=== PATIENT | female | born 1995 | race Caucasian/White ===

== ENCOUNTER 2017-07-07 12:02 | Emergency (ER) | payer MEDICAID ==
[2017-07-07 12:24] VITALS: TEMP 98
[2017-07-07] MEDS ORDERED: Iohexol 240 (50 ml) PO ONE (13:52)
[2017-07-07] MEDS ORDERED: Sodium Chloride 0.9% 1,000 ML IV STA (13:53)
--- NOTE | 2017-07-07 13:55 | ED PDOC ---
HPI: Abdomen Time Seen by Provider: 07/07/17 12:19 Chief Complaint (Nursing): Abdominal Pain Chief Complaint (Provider): Abdominal pain History Per: Patient Additional Complaint(s): 21 yo female, no PMH, presents to ED with complaints of kar umbilical abd pain , described as cramping and sharp, non radiating. No fever or chills. Pt notes associated vomiting x6+No diarrhea Past Medical History Reviewed: Nursing Documentation, Vital Signs Vital Signs: Last Vital Signs Temp 98 F 07/07/17 19:13 Pulse 78 07/07/17 19:13 Resp 17 07/07/17 19:13 BP 120/78 07/07/17 19:13 Pulse Ox 98 07/07/17 19:13 - Medical History PMH: No Chronic Diseases - Family History Family History: States: Unknown Family Hx - Living Arrangements Living Arrangements: With Family - Social History Current smoker - smoking cessation education provided: No Alcohol: Social Drugs: Denies - Home Medications Home Medications: Ambulatory Orders Medication Instructions Recorded Phenazopyridine HCl [Pyridium] 100 mg PO TID #6 tab 04/20/17 Sulfamethoxazole/Trimethoprim 1 tab PO BID 5 Days tab 04/20/17 [Bactrim DS 800 mg-160 mg] Dicyclomine [Bentyl] 10 mg PO QID PRN #10 cap 07/07/17 Ondansetron ODT [Zofran ODT] 4 mg PO Q6 PRN #10 odt 07/07/17 - Allergies Allergies/Adverse Reactions: Allergies Allergy/AdvReac Type Severity Reaction Status Date / Time No Known Allergies Allergy Verified 08/15/14 22:58 Review of Systems ROS Statement: Except As Marked, All Systems Reviewed And Found Negative Constitutional: Negative for: Fever Gastrointestinal: Positive for: Nausea, Vomiting, Abdominal Pain. Negative for : Diarrhea Physical Exam - Reviewed Nursing Documentation Reviewed: Yes Vital Signs Reviewed: Yes - Physical Exam Appears: Positive for: Well, Non-toxic, No Acute Distress Head Exam: Positive for: ATRAUMATIC, NORMAL INSPECTION, NORMOCEPHALIC Skin: Positive for: Normal Color, Warm, DRY Eye Exam: Positive for: EOMI, Normal appearance, PERRL ENT: Positive for: Normal ENT Inspection Neck: Positive for: Normal, Painless ROM Cardiovascular/Chest: Positive for: Regular Rate, Rhythm Respiratory: Positive for: CNT, Normal Breath Sounds Gastrointestinal/Abdominal: Positive for: Bowel Sounds, Soft, Tenderness (mild kar umbilical) Back: Positive for: Normal Inspection Extremity: Positive for: Normal ROM Neurologic/Psych: Positive for: Alert, Oriented - Laboratory Results Result Diagrams: 07/07/17 14:13 07/07/17 14:00 - ECG O2 Sat by Pulse Oximetry: 100 Medical Decision Making Medical Decision Making: IV access established and treatment initiated with IVF, Zofran and Toradol Labs resulted and reviewed with Pt who demonstrated full understanding IMPRESSION: No evidence of acute appendicitis. There are short segments of of irregular wall thickening of the mid sigmoid colon as well as the distal descending/ proximal sigmoid colon which could be secondary to some combination of underdistention, peristalsis and under opacified stool however the possibility of a nonspecific inflammatory process cannot be excluded clinical correlation recommended. Mild fatty hepatic infiltration. Liver is prominent in transverse dimension extending to the left upper quadrant of the abdomen. See above discussion for additional details, findings and recommendations. On re-eval, Pt reports feeling improved. Abdomen soft, non tedner and non distended. Pt remains aferbile Disposition - Clinical Impression Clinical Impression: Abdominal pain - Patient ED Disposition Is Patient to be Admitted: No - Disposition Disposition: Routine/Home Disposition Time: 17:00 Condition: STABLE Prescriptions: Dicyclomine [Bentyl] 10 mg PO QID PRN #10 cap PRN Reason: Pain, Mild (1-3) Ondansetron ODT [Zofran ODT] 4 mg PO Q6 PRN #10 odt PRN Reason: Nausea/Vomiting Instructions: Acute Abdominal Pain (ED) Forms: [employer] (Azeri)
[2017-07-07] MEDS ORDERED: Iohexol 240 (50 ml) ONE (14:14)
[2017-07-07 14:22] LABS: BASO % 0.6 % (0.0-2.0); EOS % 0.3 % (0.0-4.0); HEMOGLOBIN 13.2 g/dL (12.0-16.0); LYMPH # 1.7 K/uL (1.0-4.3); LYMPH % 27.5 % (20.0-40.0); MEAN CORPUSCULAR HGB CONC 33.3 g/dL (33.0-37.0); MONO # 0.5 K/uL (0.0-0.8); MONO % 7.6 % (0.0-10.0); RBC 4.54 Mil/uL (3.80-5.20); RED CELL DISTRIBUTION WIDTH 13.1 % (11.5-14.5); WHITE BLOOD COUNT 6.2 K/uL (4.8-10.8)
[2017-07-07 14:41] LABS: ALB/GLOB RATIO 1.3 (1.0-2.1); ALBUMIN 4.6 g/dL (3.5-5.0); ALT/SGPT 27 U/L (9-52); AMYLASE 92 U/L (30-110); AST/SGOT 21 U/L (14-36); BLOOD UREA NITROGEN 14 mg/dl (7-17); CALCIUM 9.5 mg/dL (8.4-10.2); GFR AFRICAN-AMERICAN > 60; GFR NON-AFRICAN AMERICAN > 60; LIPASE 45 U/L (23-300)
[2017-07-07 14:54] LABS: SQUAMOUS EPITHIAL 20 /hpf (0-5); URINE AMORPHOUS SEDIMENT RARE /ul (<OCC); URINE BILIRUBIN NEGATIVE (NEGATIVE); URINE BLOOD SMALL (NEGATIVE); URINE CLARITY CLOUDY (Clear); URINE COLOR YELLOW (YELLOW); URINE GLUCOSE (UA) NEG (Normal); URINE LEUKOCYTE ESTERASE NEG Leu/uL (Negative); URINE NITRATE NEGATIVE (NEGATIVE); URINE PROTEIN 100 mg/dL (NEGATIVE); URINE UROBILINOGEN 0.2-1.0 mg/dL (0.2-1.0)
[2017-07-07] MEDS ORDERED: Iohexol 300 100 ML IJ ONE (15:54)
[2017-07-07] MEDS ORDERED: Sodium Chloride 0.9% 50 ML IV ONE (15:54)
--- NOTE | 2017-07-07 17:56 | CT ---
PROCEDURE: CT scan abdomen and pelvis dated 07/07/2017 HISTORY: Rule out appendicitis COMPARISON: No prior TECHNIQUE: Contiguous axial images of the abdomen and pelvis performed following oral and intravenous injection of approximately 95 cc Omnipaque [address] exam was performed using one or more of the following dose reduction techniques: Automated exposure control, adjustment of the mA and/or kV according to patient size, and/or use of iterative reconstruction technique. Radiation dose: Total exam DLP = 471.79 mGy-cm. FINDINGS: LOWER THORAX: There is a tiny approximately 3 mm somewhat translucent healing elliptical shaped subpleural nodular density right posterior sulcus that may represents postinflammatory sequela. Minor left basilar atelectasis on slightly more inferiorly located as well. No effusion or basilar pneumothorax. Tiny hiatal hernia. LIVER: Liver exhibits relatively measures approximately 17 cm in CC dimension. However the left lobe of the liver extends to the left upper quadrant of the abdomen. Mild diffuse fatty hepatic infiltration. No obvious hepatic mass collection or calcification. Portal and splenic veins are opacified. GALLBLADDER AND BILE DUCTS: The gallbladder is physiologically distended. No evidence of intraluminal gallbladder calculi. . PANCREAS: Unremarkable. No mass. No ductal dilatation. SPLEEN: Unremarkable. No splenomegaly. ADRENALS: No adrenal lesions KIDNEYS AND URETERS: Unremarkable. No stone or hydronephrosis. BLADDER: Urinary bladder appears appears partially distended. Minimal wall thickening may be due to incomplete distention however correlation with urinalysis recommended to exclude cystitis. REPRODUCTIVE: Unremarkable as visualized APPENDIX: Normal-appearing appendix best seen on coronal image number [id number]. No evidence of appendicitis. BOWEL: Evaluation of the bowel is somewhat limited due to incomplete opacification. Stomach is incompletely distended which may account for thick-walled appearance. Gastritis not excluded. Visualized loops of small bowel exhibit normal contour and caliber. No evidence acute mechanical small bowel obstruction. Oral contrast material has extended into the colon to the level of the rectum. There is mild irregular wall thickening of a short segment of the mid sigmoid colon which may in part be due to some combination of incomplete distention, peristalsis head non-opacified stool however the possibility of a localized inflammatory process -colitis must be at considered. Clinical correlation recommended. There is a similar focus of of wall thickening involving a short segment of the distal descending/ proximal sigmoid colon noted as well. PERITONEUM: Unremarkable. No fluid collection. No free air. Small fat containing umbilical hernia. LYMPH NODES: Unremarkable. No enlarged lymph nodes. VASCULATURE: Unremarkable. No aortic aneurysm. BONES: Osseous structures appear grossly intact. OTHER FINDINGS: None. IMPRESSION: No evidence of acute appendicitis. There are short segments of of irregular wall thickening of the mid sigmoid colon as well as the distal descending/ proximal sigmoid colon which could be secondary to some combination of underdistention, peristalsis and under opacified stool however the possibility of a nonspecific inflammatory process cannot be excluded clinical correlation recommended. Mild fatty hepatic infiltration. Liver is prominent in transverse dimension extending to the left upper quadrant of the abdomen. See above discussion for additional details, findings and recommendations.
[2017-07-07 19:14] VITALS: BP 120/78; PULSE 78; RESP 17
[2017-08-01 20:26] VITALS: O2SAT 100
== END 2017-07-07 19:14 | disposition home or self-care (01) ==
LOC: H.ER 12:02
DX: R10.9 Unspecified abdominal pain (principal)
CPT/HCPCS: 74177; 80053; 81003; 81025; 82150; 83690; 85025; 96374; 96375; 99283; J1885; J2405; J7040; Q9966; Q9967

== ENCOUNTER 2017-09-27 21:57 | Emergency (ER) | payer MEDICAID ==
[2017-09-27 22:07] VITALS: RESP 18
--- NOTE | 2017-09-27 22:56 | ED PDOC ---
HPI: Female Pain Time Seen by Provider: 09/27/17 22:00 Chief Complaint (Nursing): Female Genitourinary Chief Complaint (Provider): Female Genitourinary History Per: Patient History/Exam Limitations: no limitations Current Symptoms Are (Timing): Still Present Additional Complaint(s): 22 y/o female (A2) presents to the ED for bright red vaginal spotting and abdominal cramping x 2 weeks. Bleeding has been increasing and has been heavy today. reports slight nausea due to but denies any further medical complaints. Past Medical History Reviewed: Historical Data, Nursing Documentation, Vital Signs Vital Signs: Last Vital Signs Temp 98.4 F 09/27/17 22:04 Pulse 74 09/27/17 22:04 Resp 18 09/27/17 22:04 BP 105/63 09/27/17 22:04 Pulse Ox 99 09/27/17 22:04 - Medical History PMH: No Chronic Diseases - Surgical History Surgical History: No Surg Hx - Family History Family History: States: Unknown Family Hx - Social History Current smoker - smoking cessation education provided: Yes (Light Smoker < 10 Cigarettes Daily) Alcohol: Social Drugs: Denies - Home Medications Home Medications: Ambulatory Orders Medication Instructions Recorded Phenazopyridine HCl [Pyridium] 100 mg PO TID #6 tab 04/20/17 Sulfamethoxazole/Trimethoprim 1 tab PO BID 5 Days tab 04/20/17 [Bactrim DS 800 mg-160 mg] Dicyclomine [Bentyl] 10 mg PO QID PRN #10 cap 07/07/17 Ondansetron ODT [Zofran ODT] 4 mg PO Q6 PRN #10 odt 07/07/17 - Allergies Allergies/Adverse Reactions: Allergies Allergy/AdvReac Type Severity Reaction Status Date / Time No Known Allergies Allergy Verified 08/15/14 22:58 Review of Systems ROS Statement: Except As Marked, All Systems Reviewed And Found Negative (As per HPI, otherwise negative) Genitourinary Female: Positive for: Vaginal Bleeding (and vaginal spotting), Other Physical Exam - Reviewed Nursing Documentation Reviewed: Yes Vital Signs Reviewed: Yes - Physical Exam Appears: Positive for: Non-toxic, No Acute Distress Head Exam: Positive for: ATRAUMATIC, NORMAL INSPECTION, NORMOCEPHALIC Skin: Positive for: Normal Color, Warm, Dry Eye Exam: Positive for: EOMI, Normal appearance, PERRL ENT: Positive for: Normal ENT Inspection Neck: Positive for: Normal, Painless ROM, Supple Cardiovascular/Chest: Positive for: Regular Rate, Rhythm. Negative for: Murmur Respiratory: Positive for: Normal Breath Sounds. Negative for: Accessory Muscle Use, Respiratory Distress Gastrointestinal/Abdominal: Positive for: Tenderness (suprapubic tenderness) Pelvic Exam: Positive for: No Cerv. Motion Tender, Blood (trace amount ), Other (client services associate: Azalia). Negative for: Tender Adnexa Back: Positive for: Normal Inspection Extremity: Positive for: Normal ROM. Negative for: Deformity Neurologic/Psych: Positive for: Alert, Oriented (x3) - Laboratory Results Result Diagrams: 09/27/17 23:03 09/27/17 23:03 - ECG O2 Sat by Pulse Oximetry: 99 (RA) Pulse Ox Interpretation: Normal Medical Decision Making Medical Decision Making: Time: 22: 31 Plan: prgenancy bleeding rule out threatened Type and screen Beta-HcG CMP CBC w/ differential Urine C&S Urinalysis Transvaginal US Reevaluation Patient's lab present to be normal and urine is normal. Her RH is positive Time: 0208 EXAM: US , Transvaginal US Duplex Arterial/Venous of the Pelvis, Complete FINDINGS: Gestation: There is single intrauterine gestational sac with presence of yolk sac, pole The heart motion at the rate of 157 beats per minute. Estimated gestational age calculated from [place] rump length is estimated to be 8 weeks 2 days and estimated gestational age calculated from mean sac diameter is estimated to be 8 weeks 2 days. The yolk sac measures 0.78 cm. Uterus/cervix: The cervix is closed and measures 5.0 cm. Ovaries: The right ovary is not seen. The left ovary measures 1.6 x 1.5 x 1.6 cm.Duplex assessment demonstrates presence of color Doppler signal and spectral Doppler waveform in left ovary. The right adnexa is obscured by shadowing. Free fluid: Trace free pelvic fluid. IMPRESSION: 1. IUP as described. Trace free pelvic fluid. pt aware of results, advices on pelvic rest and outpt follow up with truck driver instructor. Scribe Attestation: Documented by Matheus Benavidez and Ramsey Sigala acting as scribes for Amy Norris MD. Scribe Attestation: All medical record entries made by the Scribe were at my direction and personally dictated by me. I have reviewed the chart and agree that the record accurately reflects my personal performance of the history, physical exam, medical decision making, and the department course for this patient. I have also personally directed, reviewed, and agree with the discharge instructions and disposition. Disposition - Clinical Impression Clinical Impression: - Patient ED Disposition Is Patient to be Admitted: No Counseled Patient/Family Regarding: Studies Performed, Diagnosis - Disposition Referrals: [facility] [Outside] [facility] [[facility]] Disposition Time: 23:45 Condition: IMPROVED Additional Instructions: follow up with your primary truck driver instructor within one week pelvic rest, take it easy return to the ED with any worsening or concerning symptoms Instructions: Medications and , Threatened Miscarriage Forms: [employer] (Maltese)
[2017-09-27 23:10] LABS: BASO % 0.6 % (0.0-2.0); EOS # 0.1 K/uL (0.0-0.7); EOS % 0.9 % (0.0-4.0); LYMPH # 1.9 K/uL (1.0-4.3); LYMPH % 26.6 % (20.0-40.0); MEAN CELL VOLUME 86.9 fl (81.0-99.0); MEAN CORPUSCULAR HGB CONC 34.6 g/dL (33.0-37.0); MEAN PLATELET VOLUME 8.3 fl (7.2-11.7); MONO # 0.7 K/uL (0.0-0.8); MONO % 9.9 % (0.0-10.0); NEUT # 4.5 K/uL (1.8-7.0); NRBC % 0.1 % (0.0-0.0); RBC 3.99 Mil/uL (3.80-5.20); WHITE BLOOD COUNT 7.3 K/uL (4.8-10.8)
[2017-09-27 23:16] LABS: ALB/GLOB RATIO 1.2 (1.0-2.1); ALBUMIN 4.1 g/dL (3.5-5.0); ALT/SGPT 27 U/L (9-52); AST/SGOT 19 U/L (14-36); BLOOD UREA NITROGEN 13 mg/dl (7-17); CALCIUM 9.7 mg/dL (8.4-10.2); GFR AFRICAN-AMERICAN > 60; GFR NON-AFRICAN AMERICAN > 60
[2017-09-27 23:29] LABS: SQUAMOUS EPITHIAL 1 /hpf (0-5); URINE BACTERIA RARE (<OCC); URINE BILIRUBIN NEGATIVE (NEGATIVE); URINE BLOOD NEGATIVE (NEGATIVE); URINE CLARITY CLOUDY (Clear); URINE COLOR YELLOW (YELLOW); URINE GLUCOSE (UA) NEG (Normal); URINE LEUKOCYTE ESTERASE NEG Leu/uL (Negative); URINE PROTEIN NEGATIVE (NEGATIVE); URINE UROBILINOGEN 0.2-1.0 mg/dL (0.2-1.0)
--- NOTE | 2017-09-28 02:09 | US ---
EXAM: US , Transvaginal US Duplex Arterial/Venous of the Pelvis, Complete CLINICAL HISTORY: 22 years old, female; Signs and symptoms; Lmp or gestational age (in weeks): Lmp 08/01/2017; Other: Spotting, crampy; ; Additional info: , first trimester bleeding TECHNIQUE: Real-time transvaginal obstetrical ultrasound of the maternal pelvis and a first trimester with image documentation. Transvaginal imaging was used for better evaluation of the fetus and adnexa. Real time cine loop images are submitted. 29 images are submitted. COMPARISON: No relevant prior studies available. FINDINGS: Gestation: There is single intrauterine gestational sac with presence of yolk sac, pole The heart motion at the rate of 157 beats per minute. Estimated gestational age calculated from [place] rump length is estimated to be 8 weeks 2 days and estimated gestational age calculated from mean sac diameter is estimated to be 8 weeks 2 days. The yolk sac measures 0.78 cm. Uterus/cervix: The cervix is closed and measures 5.0 cm. Ovaries: The right ovary is not seen. The left ovary measures 1.6 x 1.5 x 1.6 cm.Duplex assessment demonstrates presence of color Doppler signal and spectral Doppler waveform in left ovary. The right adnexa is obscured by shadowing. Free fluid: Trace free pelvic fluid. IMPRESSION: 1. IUP as described. Trace free pelvic fluid.
[2017-09-28 02:46] VITALS: BP 101/58; PULSE 71; TEMP 98.2
[2017-09-28 06:19] VITALS: O2SAT 99
== END 2017-09-28 02:56 | disposition home or self-care (01) ==
LOC: H.ER 21:57
DX: O20.9 Hemorrhage in early pregnancy, unspecified (principal)

== ENCOUNTER 2017-10-10 12:50 | Emergency (ER) | payer MEDICAID ==
[2017-10-10 13:10] VITALS: BP 110/71; PULSE 107; RESP 16; TEMP 98; O2SAT 98
--- NOTE | 2017-10-10 14:14 | ED PDOC ---
HPI: CCC, URI, Sore Throat Time Seen by Provider: 10/10/17 13:13 Chief Complaint (Nursing): ENT Problem History Per: Patient Additional Complaint(s): Pt. states since Sunday morning she's had congestion and sore throat. Last night she developed a cough and also felt feverish but did not take her temperature. Pt. does admit to taking Tylenol (last dose at 1999 yesterday). Of note, pt. is currently 10 weeks . States she is currently having vaginal spotting but has been going for several weeks and has been evaluated for it here and her OBGYN Dr Longoria is aware of it. States bleeding has improved drastically since the onset. Denies pelvic pain, abd pain, chills, N/V/D, SOB, chest pain, rash. Of note, her son had same symptoms last week but improved without medical intervention. Past Medical History Reviewed: Historical Data, Nursing Documentation, Vital Signs Vital Signs: Last Vital Signs Temp 98.0 F 10/10/17 13:07 Pulse 107 H 10/10/17 13:07 Resp 16 10/10/17 13:07 BP 110/71 10/10/17 13:07 Pulse Ox 98 10/10/17 15:43 - Family History Family History: States: Unknown Family Hx - Home Medications Home Medications: Ambulatory Orders Medication Instructions Recorded Phenazopyridine HCl [Pyridium] 100 mg PO TID #6 tab 04/20/17 Sulfamethoxazole/Trimethoprim 1 tab PO BID 5 Days tab 04/20/17 [Bactrim DS 800 mg-160 mg] Dicyclomine [Bentyl] 10 mg PO QID PRN #10 cap 07/07/17 Ondansetron ODT [Zofran ODT] 4 mg PO Q6 PRN #10 odt 07/07/17 Acetaminophen [Tylenol 650 mg PO Q4 PRN #120 ml 10/10/17 650mg/20.3ml solution UD] - Allergies Allergies/Adverse Reactions: Allergies Allergy/AdvReac Type Severity Reaction Status Date / Time No Known Allergies Allergy Verified 10/10/17 13:07 Review of Systems ROS Statement: Except As Marked, All Systems Reviewed And Found Negative Constitutional: Positive for: Fever ENT: Positive for: Nose Congestion, Throat Pain Respiratory: Positive for: Cough Physical Exam - Physical Exam Appears: Positive for: Well, Non-toxic, No Acute Distress Skin: Positive for: Normal Color, Warm. Negative for: Rash Eye Exam: Positive for: Normal appearance. Negative for: Conjunctival injection (b/l) ENT: Positive for: TM Is/Are (non-erythemaotus, non-bulging b/l), Nasal Congestion, Pharyngeal Erythema. Negative for: Tonsillar Exudate, Tonsillar Swelling Neck: Positive for: Normal, Painless ROM Cardiovascular/Chest: Positive for: Regular Rate, Rhythm. Negative for: Murmur , Tachycardia Respiratory: Positive for: Normal Breath Sounds. Negative for: Wheezing, Respiratory Distress Gastrointestinal/Abdominal: Positive for: Normal Exam, Soft. Negative for: Tenderness Back: Negative for: L CVA Tenderness, R CVA Tenderness Neurologic/Psych: Positive for: Alert, Oriented - ECG O2 Sat by Pulse Oximetry: 98 - Progress ED Course And Treament: Rapid strep: negative Repeat HR: 82 Disposition - Clinical Impression Clinical Impression: Upper respiratory infection - Patient ED Disposition Is Patient to be Admitted: No - Disposition Referrals: [facility] [Outside] Disposition: Routine/Home Disposition Time: 15:40 Condition: STABLE Additional Instructions: Follow up with your OBGYN for further evaluation. Return to ED immediately if symptoms worsen. Use a humidifier. Do warm salt water gargles. Drink plenty of fluids. Prescriptions: Acetaminophen [Tylenol 650mg/20.3ml solution UD] 650 mg PO Q4 PRN #120 ml PRN Reason: fever or pain Instructions: Viral Upper Respiratory Infection, Adult (DC) Forms: [employer] (Greenlandic) Print Language: UZBEK
== END 2017-10-10 15:50 | disposition home or self-care (01) ==
LOC: H.ER 12:50
DX: J06.9 Acute upper respiratory infection, unspecified (principal); O99.511 Diseases of the respiratory system complicating pregnancy, first trimester; Z3A.10 10 weeks gestation of pregnancy

== ENCOUNTER 2018-03-10 19:18 | Emergency (ER) | payer MEDICAID, OTHER ==
[2018-03-10 19:59] VITALS: BMI 28.0
[2018-03-10 21:04] LABS: SQUAMOUS EPITHIAL 8 /hpf (0-5); URINE BACTERIA RARE (<OCC); URINE BILIRUBIN NEGATIVE (NEGATIVE); URINE BLOOD NEGATIVE (NEGATIVE); URINE CLARITY CLOUDY (Clear); URINE COLOR YELLOW (YELLOW); URINE GLUCOSE (UA) 50 mg/dL (Normal); URINE LEUKOCYTE ESTERASE NEG Leu/uL (Negative); URINE PROTEIN 30 mg/dL (NEGATIVE)
--- NOTE | 2018-03-10 22:40 | OBHP ---
Datetime: 03/10/2018 20:32 IP Adm Impression: , intrauterine IP Chief Complaint Other: Back pain IP Admit Plan: Observation/Evaluation Admit Comment, IP Provider: HPI: Amanda is a 22 year old at 31.4 weeks who presents to [facility] with complaints of constant low back pain as well as a sensation of period cramps. Her back pain st arted earlier this today and has been steady since, mostly in the midline low back. Also complaining of intermittent pelvic pain. Denies any nausea, vomiting, diarrhea, dysuria, urinary urgency or frequ ency. Reporting good movement, no LOF or vaginal bleeding. History One previous SAB and 1 vaginal delivery, uncomplicated. She gets her care in [facility] d denies any complications with this current . PMH Denies PSH Denies Social History Works as a caretaker grounds. Denies any alcohol, tobacco or drug use. Medications PNV Allergies NKDA OBJECTIVE See exam section labs unavailable, though she does report an elevated 1 hr GTT, planned for a 3 hr GTT thi s coming week Labs: Assessment/Plan: The patient was seen with the resident I agree with the note. check UA FFN Hydration obsevation Abdomen - PN: Normal Lungs - PN: Normal Heart - PN: Normal HEENT - PN: Normal General - PN: Normal IP Fetus A Comments: NST Reactive FHR - Baseline A Provider: 130 Contraction Comments Provider: Very sporadic contractions Gestation - Est Wks by US: 31.4 EGA AdmitDate IP: 31.4 Vital Signs Provider: Reviewed; Within Normal Limits IP Chief Complaint: Uterine contractions NICHD Variability Prov Fetus A: Moderate 6-25bpm NICHD Accel Fetus A IP Provider: [id number] NICHD Decel Fetus A IP Provider: None
[2018-03-10 23:25] LABS: SPECIMEN COMMENT CLOUDY
[2018-03-10] MEDS ORDERED: Lactated Ringer's 1,000 ML IV SCH (23:45)
[2018-03-11 05:57] VITALS: BP 118/64; PULSE 102
== END 2018-03-10 23:45 | disposition home or self-care (01) ==
LOC: H.EROB2 19:18
DX: O26.93 Pregnancy related conditions, unspecified, third trimester (principal); R10.2 Pelvic and perineal pain; M54.5 Low back pain; Z3A.31 31 weeks gestation of pregnancy
CPT/HCPCS: 81003; 82731; 99283; J7120

== ENCOUNTER 2018-04-07 18:43 | Emergency (ER) | payer OTHER ==
[2018-04-07 19:17] VITALS: BMI 29.0
[2018-04-07 19:47] LABS: SQUAMOUS EPITHIAL 3 /hpf (0-5); URINE BACTERIA OCC (<OCC); URINE BILIRUBIN NEGATIVE (NEGATIVE); URINE BLOOD NEGATIVE (NEGATIVE); URINE CLARITY SLIGHTY-CLOUDY (Clear); URINE COLOR YELLOW (YELLOW); URINE GLUCOSE (UA) NEG (Normal); URINE LEUKOCYTE ESTERASE NEG Leu/uL (Negative); URINE PROTEIN NEGATIVE (NEGATIVE); URINE UROBILINOGEN 0.2-1.0 mg/dL (0.2-1.0)
--- NOTE | 2018-04-07 19:53 | OBHP ---
Datetime: 04/07/2018 19:37 IP Adm Impression: , intrauterine ; No Active Labor IP Admit Plan: Observation/Evaluation; Discharge home Admit Comment, IP Provider: 22yo with IUP at 35.4wks reportsing here today c/o back pains in th e morning. She also reported of burning urination with frequency since 3 pm. She denies any Vaginal bleeding or leakage of fluid. OBHX: - PNC with the [facility]. Uncomplicated course. O: Afebrile, lying comfortably in bed Heart: RRR Chest: CTA B/L Abd: Soft, NT, BS- present Costovertebral angle tenderness- negative b/l FHR- Category 1 TOCO- Occasional SVE: Closed/0/-3 Assessment: IUP at 35wks Pelvic pressure probably UTI NST- Reactive. Plan: UA- Encourage fluid intake Anitbiotics if UA depicts UTI Follow up with OB doctor within 1 week. Discharge Home when UA is negative. Labor instructions given. Pelvic Type - PN: Adequate Extremities - PN: Normal Abdomen - PN: Normal Back - PN: Normal Breast - PN: Normal Lungs - PN: Normal Heart - PN: Normal Thyroid - PN: Normal Neurologic - PN: Normal HEENT - PN: Normal General - PN: Normal FHR - Baseline A Provider: 140s Membranes, Provider: Intact Gestation - Est Wks by US: 35.4 EGA AdmitDate IP: 35.4 Vital Signs Provider: Reviewed IP Chief Complaint: Signs/symptoms UTI; Maternal discomfort NICHD Accel Fetus A IP Provider: [id number] FHR Category Provider Fetus A: Category I NICHD Decel Fetus A IP Provider: None Dilatation, Provider: 0 Effacement, Provider: 0 Station, Provider: -3 Genitourinary Exam: Normal DTRs - PN: Normal Datetime: 03/10/2018 20:32 Comments, ACOG Physical Exam: Back: mild tenderness to palpation over the lumbosacral spine and SI j oints, no CVA tenderness
[2018-04-08 00:58] VITALS: BP 111/62; PULSE 98; RESP 18; TEMP 98.5; O2SAT 100
== END 2018-04-07 20:20 | disposition home or self-care (01) ==
LOC: H.EROB2 18:43
DX: O26.93 Pregnancy related conditions, unspecified, third trimester (principal); M54.9 Dorsalgia, unspecified; R30.0 Dysuria; Z3A.35 35 weeks gestation of pregnancy; R10.2 Pelvic and perineal pain